=== PATIENT | female | born 1955 | race American Indian/Alaskan Native ===

== ENCOUNTER 2019-04-04 12:19 | Emergency (ER) | payer MEDICARE ==
--- NOTE | 2019-04-04 12:56 | Emergency Department Report ---
Blank Doc - Documentation Documentation: 63-year-old female that presents with left knee pain and swelling. This initial assessment/diagnostic orders/clinical plan/treatment(s) is/are subject to change based on patient's health status, clinical progression and re- assessment by fellow clinical providers in the ED. Further treatment and workup at subsequent clinical providers discretion. Patient/guardians urged not to elope from the ED as their condition may be serious if not clinically assessed and managed. Initial orders include: 1- Patient sent to [facility] for further evaluation and treatment 2- xrays
[2019-04-04 12:59] VITALS: BP 183/92
--- NOTE | 2019-04-04 13:50 | XRay Report ---
LEFT KNEE 3 VIEWS INDICATION: knee pain. COMPARISON: None. IMPRESSION: Severe end-stage osteoarthritic changes are identified throughout the left knee. There i s near complete loss of the joint space with sclerosis, marginal spurring and large subchondral cysts . Lateral subluxation of the tibial plateau measures up to 1.2 cm. A moderate joint effusion is iden tified on the lateral image. No acute osseous injury is detected. Signer Name: Evan Escobar Jr, MD Signed: 04/04/2019 1:45 PM Workstation Name: [id number]
[2019-04-04] MEDS ORDERED: KETOROLAC 30 MG/1 ML INJ IV STA (14:32)
--- NOTE | 2019-04-04 14:37 | Emergency Department Report ---
ED Lower Extremity HPI - General Chief Complaint: Extremity Injury, Lower Stated Complaint: LFT KNEE SWELLING/PAIN Time Seen by Provider: 04/04/19 12:55 Source: patient Mode of arrival: Ambulatory Limitations: No Limitations - History of Present Illness Initial Comments: cc: knee pain HPI: 63 yo female with hx of OA of the knee and HTN who presents with severe knee pain and swelling for 3 days. No hx of trauma. Mild swelling. Has severe OA of the left knee. Was advised to have TKR 6 years ago 2012 when she had the TKR of the right knee. Did not attempt home medication. She drove her personal vehicle to the ED. Complaint: other (knee pain) -: Gradual, days(s) (3) Injury: Knee: Left Place: home, other (worse after grocery shopping) Severity: severe Worsens With: weight bearing Context: other (hx of severe OA) Associated Symptoms: swelling (mild swelling) - Related Data Previous Rx's Medication Instructions Recorded Last Taken Type HYDROcodone/APAP 5-325 [[place] 1 each PO Q6HR PRN #15 tablet 04/04/19 Unknown Rx 5/325] Allergies Allergy/AdvReac Type Severity Reaction Status Date / Time No Known Allergies Allergy Unverified 04/04/19 12:56 ED Review of Systems ROS: Stated complaint: LFT KNEE SWELLING/PAIN Other details as noted in HPI Constitutional: denies: fever, malaise Respiratory: denies: cough, shortness of breath Cardiovascular: denies: chest pain Gastrointestinal: denies: abdominal pain Musculoskeletal: arthralgia ED Past Medical Hx - Past Medical History Previous Medical History?: Yes Hx Hypertension: Yes Hx Arthritis: Yes - Surgical History Past Surgical History?: Yes Additional Surgical History: RIGHT KNEE replacement, total - Social History Smoking Status: Never Smoker Substance Use Type: None - Medications Home Medications: Home Medications Medication Instructions Recorded Confirmed Last Taken Type HYDROcodone/APAP 5-325 [[place] 1 each PO Q6HR PRN #15 tablet 04/04/19 Unknown Rx 5/325] ED Physical Exam - General Limitations: No Limitations General appearance: alert, in no apparent distress - Head Head exam: Present: atraumatic, normocephalic - ENT ENT exam: Present: mucous membranes moist - Neck Neck exam: Present: normal inspection - Respiratory Respiratory exam: Absent: respiratory distress - Expanded Lower Extremity Exam Left Knee exam: Present: full ROM, swelling, deformity (chronic deformity no erythema no effusion ), crepidus. Absent: abrasion, laceration, ecchymosis ED Course Vital Signs 04/04/19 12:19 Temperature 98.5 F Pulse Rate 98 H Respiratory 18 Rate Blood Pressure 183/92 [Right] O2 Sat by Pulse 96 Oximetry ED Lower Extremity MDM - Radiology Data Radiology results: report reviewed Left knee: Severe end-stage osteoarthritic changes no complete loss of the joint space with sclerosis marginal spurring large subchondral cysts lateral subluxation of the tibial plateau moderate joint effusion no osseous injury - Medical Decision Making Pain due to severe end-stage osteoarthritis of the left knee. I do not suspect or detect findings of septic arthropathy. She received IM ketorolac in the emergency department. I prescribed [place]. I referred her to our orthopedic surgeon. She plans to see our orthopedic surgeon or follow-up with her previous orthopedic surgeon associated with [facility]. Critical care attestation.: If time is entered above; I have spent that time in minutes in the direct care of this critically ill patient, excluding procedure time. ED Disposition Clinical Impression: Osteoarthritis of left knee, Acute pain of left knee Disposition: DC-[id number] TO HOME OR SELFCARE Is pt being admited?: No Does the pt Need Aspirin: No Condition: Stable Instructions: Osteoarthritis (ED) Prescriptions: HYDROcodone/APAP 5-325 [[place] 5/325] 1 each PO Q6HR PRN #15 tablet PRN Reason: Pain Referrals: MARIA R BURNHAM MD [Staff Physician] - 3-5 Days
[2019-04-04] MEDS ORDERED: KETOROLAC 30 MG/1 ML INJ IM ONE (14:39)
== END 2019-04-04 14:48 | disposition home or self-care (01) ==
LOC: ED 12:19
DX: M17.5 Other unilateral secondary osteoarthritis of knee (principal); I10 Essential (primary) hypertension; M19.90 Unspecified osteoarthritis, unspecified site; Z98.890 Other specified postprocedural states
CPT/HCPCS: 73562; 96372; 99283; J1885